=== PATIENT | female | born 1980 | race Caucasian/White ===

== ENCOUNTER → 2016-11-20 | Outpatient (CLI) | payer OTHER ==
[~2016-11-20] MED LIST: ANTIVERT 25MG25 MG PO; ATIVAN 0.50.5 MG/TAB PO; BUSPAR10 MG PO; BUSPAR5 MG PO; LAMISIL250 M1; MOTRIN 800800 MG/TAB PO; NORCO 325 MG-51 TAB PO; PRENATAL VITAMI1 TA5 PO; VIVLODEX5 MG PO; WELLBUTRIN 75MG75 MG PO; ZOFRAN 4MG T4 MG/TAB PO; ZOFRAN ODT4 MG PO
== END ==
LOC: COL.VAS 12:07
DX: I82.4Z2 Acute embolism and thrombosis of unspecified deep veins of left distal lower extremity (principal)

== ENCOUNTER → 2016-11-22 | Outpatient (CLI) | payer OTHER | LOC: COL.VAS 11:05 | DX: I82.812 Embolism and thrombosis of superficial veins of left lower extremity (principal); M79.605 Pain in left leg; M79.89 Other specified soft tissue disorders ==

== ENCOUNTER → 2016-12-18 | Outpatient (CLI) | payer OTHER | LOC: COL.VAS 10:30 | DX: M79.89 Other specified soft tissue disorders (principal); M79.662 Pain in left lower leg ==

== ENCOUNTER 2017-03-11 10:29 | Emergency (ER) | payer OTHER ==
[~2017-03-11] VITALS: Ht 167.6 cm; Wt 70.5 kg
[~2017-03-11 10:29] MED LIST changes: -BUSPAR5 MG PO; -LAMISIL250 M1; -VIVLODEX5 MG PO; -ZOFRAN 4MG T4 MG/TAB PO
[2017-03-11 10:32] VITALS: BP 116/83; TEMP 98.3
[2017-03-11] MEDS ORDERED: BUSPAR5 MG PO (10:34)
[2017-03-11] MEDS ORDERED: VIVLODEX5 MG PO (10:35)
[2017-03-11] MEDS ORDERED: LAMISIL250 M1 (10:35)
[2017-03-11 11:19] LABS: BASO % 0.5 % (0.0-2.0); EOS # 0.1 (0.0-0.7); EOS % 1.4 % (0-4.0); GRAN # 4.7 (1.4-6.5); GRAN % 64.4 % (42.2-75.2); HEMATOCRIT 47.2 % (37.0-47.0); LYMPH # 1.7 (1.2-3.4); LYMPH % 23.5 % (20.0-51.0); MEAN CELL VOLUME 95 fl (80.0-100.0); MEAN CORPUSCULAR HEMOGLOBIN 32 pg (27.0-31.0); MEAN CORPUSCULAR HGB CONC 34 g/dl (33.0-37.0); MEAN PLATELET VOLUME 10.6 fl (7.4-10.4); MONO # 0.7 (0.1-0.6); MONO % 10.1 % (1.7-9.3); PLATELET COUNT 221 K/mm3 (130-400); RED BLOOD COUNT 4.95 M/mm3 (4.10-5.30); WHITE BLOOD COUNT 7.3 K/mm3 (4.8-10.8)
[2017-03-11 11:23] LABS: PH 5 (5-8); SQUAMOUS EPITHELIAL 0-2 /hpf; URINE APPEARANCE Hazy; URINE BACTERIA Many /hpf; URINE BILIRUBIN Negative (NEGATIVE); URINE BLOOD Negative (NEGATIVE); URINE COLOR Yellow; URINE GLUCOSE Negative (NEGATIVE); URINE KETONE Negative (NEGATIVE); URINE RBC 0-2 /hpf; URINE UROBILINOGEN Negative (NEGATIVE)
[2017-03-11 11:36] LABS: ADJUSTED CALCIUM 8.6 mg/dL (8.4-10.2); ALBUMIN 4.6 gm/dL (3.5-5.0); BILIRUBIN,TOTAL 0.9 mg/dL (0.0-1.0); C-REACTIVE PROTEIN 2.5 mg/dL (0.0-0.9); CALCIUM 9.1 mg/dL (8.4-10.2); CREATININE, serum 0.98 mg/dL (0.52-1.25); POTASSIUM 4.2 mmol/L (3.4-5.0); TOTAL PROTEIN 8.1 gm/dL (6.4-8.2)
[2017-03-11] MEDS ORDERED: ZOFRAN 4MG T4 MG/TAB PO (13:17)
[2017-03-11 13:26] VITALS: PULSE 80
== END 2017-03-11 13:27 | disposition home or self-care (01) ==
LOC: COL.ER 10:29
PROVIDERS: Nurse Practitioner
DX: R10.31 Right lower quadrant pain (principal); R10.33 Periumbilical pain; F32.9 Major depressive disorder, single episode, unspecified; R63.0 Anorexia; R11.0 Nausea
CPT/HCPCS: J2405; J7030; Q9967

== ENCOUNTER → 2018-01-08 | Outpatient (CLI) | payer SELFPAY ==
[~2018-01-08] MED LIST changes: +BUSPAR5 MG PO; +LAMISIL250 M1; +VIVLODEX5 MG PO; +ZOFRAN 4MG T4 MG/TAB PO
== END ==
LOC: COL.VAS 15:15
DX: M79.605 Pain in left leg (principal)

== ENCOUNTER → 2018-09-10 | Outpatient (CLI) | payer SELFPAY | LOC: COL.RAD 10:16 | DX: N26.1 Atrophy of kidney (terminal) (principal); K80.20 Calculus of gallbladder without cholecystitis without obstruction; R30.0 Dysuria; M54.5 Low back pain ==

== ENCOUNTER 2019-12-15 18:55 | Emergency (ER) | payer SELFPAY ==
[~2019-12-15] VITALS: Ht 167.6 cm; Wt 75.9 kg
[2019-12-15 18:58] VITALS: BP 119/71; TEMP 97.9
[2019-12-15 20:17] VITALS: PULSE 62
== END 2019-12-15 20:22 | disposition home or self-care (01) ==
LOC: COL.ER 18:55
DX: J11.1 Influenza due to unidentified influenza virus with other respiratory manifestations (principal)

== ENCOUNTER 2022-04-04 10:59 | Emergency (ER) | payer OTHER ==
[~2022-04-04] VITALS: Ht 167.6 cm; Wt 72.3 kg
[2022-04-04 11:10] VITALS: TEMP 98
[2022-04-04 12:05] LABS: COLLECTION METHOD CLEAN CATCH
[2022-04-04 12:12] LABS: BASO # 0.1 K/mm3 (0.0-0.2); BASO % 0.7 % (0.0-2.0); EOS # 0.1 K/mm3 (0.0-0.7); EOS % 0.7 % (0.0-4.0); GRAN # 6.2 K/mm3 (1.4-6.5); GRAN % 70.9 % (42.2-75.2); HEMATOCRIT 39.1 % (37.0-47.0); HEMOGLOBIN 13.1 g/dl (12.5-16.0); LYMPH # 1.4 K/mm3 (1.2-3.4); LYMPH % 16.5 % (20.0-51.0); MEAN CELL VOLUME 96 fl (80.0-100.0); MEAN CORPUSCULAR HEMOGLOBIN 32 pg (27-31); MEAN CORPUSCULAR HGB CONC 34 g/dl (33.0-37.0); MONO # 0.9 K/mm3 (0.1-0.6); MONO % 10.7 % (1.7-9.3); PLATELET COUNT 214 K/mm3 (130-400); RED BLOOD COUNT 4.08 M/mm3 (4.10-5.30); REDCELL DISTRIBUTION WIDTH-CV 12.7 % (11.5-14.5)
[2022-04-04 12:24] LABS: MUCOUS Present (NOT PRESENT); PH 5 (5-8); URINE APPEARANCE Hazy (CLEAR/HAZY); URINE BACTERIA Moderate /hpf (NONE SEEN); URINE BILIRUBIN Negative (NEGATIVE); URINE BLOOD Negative (NEGATIVE); URINE COLOR Amber (YELLOW); URINE GLUCOSE Negative (NEGATIVE); URINE KETONE Negative (NEGATIVE); URINE LEUKOCYTE ESTERASE Negative (NEGATIVE); URINE NITRATE Positive (NEGATIVE); URINE PROTEIN(semi-quant) Negative (NEGATIVE); URINE UROBILINOGEN >=4.0 (NEGATIVE)
[2022-04-04 12:37] LABS: ALBUMIN 3.1 gm/dL (3.5-5.0); BILIRUBIN,TOTAL 0.3 mg/dL (0.2-1.2); C-REACTIVE PROTEIN 12.57 mg/dL (0.00-0.50); CALCIUM 8.4 mg/dL (8.4-10.2); CREATININE, serum 0.92 mg/dL (0.57-1.11); POTASSIUM 3.4 mmol/L (3.5-4.5); TOTAL PROTEIN 6.8 gm/dL (6.2-8.1)
[2022-04-04] MEDS ORDERED: NORCO 325 MG-51 TAB PO (14:49)
[2022-04-04 14:59] VITALS: BP 107/77; PULSE 60
== END 2022-04-04 15:01 | disposition home or self-care (01) ==
LOC: COL.ER 10:59
PROVIDERS: Physician Assistant
DX: K52.9 Noninfective gastroenteritis and colitis, unspecified (principal); Z28.310 Unvaccinated for COVID-19
CPT/HCPCS: J1885; J2405; J7030; Q9967